=== PATIENT | female | born 1980 | race Two or more races ===

== ENCOUNTER 2021-04-13 17:12 | Inpatient (IN) | payer MEDICAID ==
[~2021-04-13] VITALS: Ht 154.9 cm; Wt 53.5 kg
[~2021-04-13 17:12] MED LIST: LISINOPRIL PO; NAPR-1176 PO; NAPROXEN PO
[2021-04-13] MEDS ORDERED: ACETAMINOPHEN 325MG TABLET PO STA (19:55)
[2021-04-13] MEDS ORDERED: ALBUTEROL (0.083%) 2.5MG/3ML NEB HHN ONE ×3 (20:15)
[2021-04-13] MEDS ORDERED: IPRATROPIUM BROMIDE (0.02%) 0.5MG/2.5ML NEB HHN ONE (20:15)
[2021-04-13 20:39] LABS: BASOPHILS % 1.9 % (0.0-2.0); EOSINOPHILS % 12.7 % (0.0-5.0); LYMPHOCYTES % 25.1 % (20.0-50.0); MEAN CORPUSCULAR HEMOGLOBIN 17.5 pg (28.0-32.0); MEAN CORPUSCULAR VOLUME 58.3 fL (81.0-99.0); MEAN PLATELET VOLUME 8.6 fl (7.4-10.4); MONOCYTES % 12.3 % (2.0-8.0); PLATELET 384 x1000/uL (130-400); RED BLOOD CELL COUNT 3.43 mill/uL (4.2-5.4); RED CELL DISTRIBUTION WIDTH 23.7 % (11.6-14.6)
[2021-04-13 20:43] LABS: CHLORIDE 106 mEq/L (98-107)
[2021-04-13 20:45] LABS: INR 1.1; PROTHROMBIN TIME 11.3 sec (9.6-11.0)
[2021-04-13 20:48] LABS: ETHANOL BLOOD < 10 mg/dL
[2021-04-13 20:57] LABS: PLATELET ESTIMATE NORMAL
[2021-04-13] MEDS ORDERED: CEFTRIAXONE 1 G PREMIX 50 ML IV SCH (21:15)
[2021-04-13] MEDS ORDERED: AZITHROMYCIN 500MG/250ML 250 ML IV SCH (21:15)
[2021-04-13 21:36] LABS: TOTAL IRON BINDING CAPACITY 356 ug/dL (250-450)
[2021-04-13] MEDS ORDERED: ONDANSETRON HCL 4MG/2ML INJ IV ONE (21:45)
[2021-04-13 22:46] LABS: CLARITY URINE CLEAR (CLEAR); COLOR URINE YELLOW (YELLOW); KETONES URINE NEGATIVE (NEGATIVE); LEUKOCYTE ESTERASE URINE 1+ (NEGATIVE); NITRITE URINE NEGATIVE (NEGATIVE); OCCULT BLOOD URINE NEGATIVE (NEGATIVE); PROTEIN URINE NEGATIVE (NEGATIVE)
[2021-04-13 22:56] LABS: *AMPHETAMINES SCREEN URINE NEGATIVE (NEGATIVE); *BARBITURATES SCREEN URINE NEGATIVE (NEGATIVE); *BENZODIAZEPINES SCREEN URINE NEGATIVE (NEGATIVE); *COCAINE SCREEN URINE NEGATIVE (NEGATIVE); METHADONE URINE SCREEN NEGATIVE (NEGATIVE)
[2021-04-13 22:57] LABS: CANNABINOID URINE SCREEN NEGATIVE (NEGATIVE); OPIATES URINE SCREEN NEGATIVE (NEGATIVE); PHENCYCLIDINE URINE SCREEN NEGATIVE (NEGATIVE)
[2021-04-14] VITALS (12 sets, daily range): BP systolic 118–146; BP diastolic 84–99
[2021-04-14] MEDS ORDERED: IPRATROPIUM/ALBUTEROL 0.5-3(2.5)MG/3ML NEB HHN PRN
[2021-04-14] MEDS ORDERED: SODIUM CHLORIDE 0.9% 1,000 ML IV SCH
[2021-04-14] MEDS ORDERED: ACETAMINOPHEN 325MG TABLET PO PRN ×2
[2021-04-14] MEDS ORDERED: DIPHENHYDRAMINE 50MG/ML VIAL IV PRN
[2021-04-14] MEDS: ONDANSETRON HCL 4MG/2ML INJ IV PRN ×2 (03:05→21:11)
[2021-04-14] MEDS: TRAMADOL 50MG TABLET PO PRN ×2 (08:03→17:53)
[2021-04-14] MEDS: PANTOPRAZOLE SODIUM 40 MG/VIAL IV SCH (08:03)
[2021-04-14 09:46] LABS: HEMATOCRIT 24.8 % (36.0-48.0); HEMOGLOBIN 7.7 g/dL (12.0-16.0); MEAN CORPUSCULAR HEMOGLOBIN 19.3 pg (28.0-32.0); MEAN CORPUSCULAR VOLUME 62.1 fL (81.0-99.0); PLATELET 352 x1000/uL (130-400); RED BLOOD CELL COUNT 3.99 mill/uL (4.2-5.4); RED CELL DISTRIBUTION WIDTH 26.5 % (11.6-14.6)
[2021-04-14] MEDS ORDERED: GUAIFENESIN 200MG/10ML SUGAR FREE UDC PO PRN (10:45)
[2021-04-14] MEDS: FUROSEMIDE 40MG TABLET PO SCH (10:52)
[2021-04-14] MEDS: IRON SUCROSE COMPLEX 100 MG/5 ML ML IV SCH (12:05)
[2021-04-14] MEDS ORDERED: POTASSIUM CHLORIDE 20MEQ TABLET SR PO NR (12:45)
[2021-04-14] MEDS ORDERED: BISACODYL 5MG TABLET PO SCH (13:30)
[2021-04-14] MEDS ORDERED: METOCLOPRAMIDE HCL 10MG/2ML VIAL IV SCH (13:30)
[2021-04-14] MEDS ORDERED: NALOXONE HCL 0.4MG/ML VIAL IV PRN (13:45)
[2021-04-14] MEDS ORDERED: SORBITOL 70% SOLN 30ML PO SCH (14:00)
[2021-04-14] MEDS ORDERED: LORAZEPAM 2MG/ML CPJ IV PRN (14:45)
[2021-04-14] MEDS ORDERED: *PATIENT'S OWN MEDICATION STORAGE XX SCH (15:45)
[2021-04-14 15:56] LABS: BASOPHILS % 1.4 % (0.0-2.0); EOSINOPHILS % 10.3 % (0.0-5.0); HEMOGLOBIN. 8.3 g/dL (12.0-16.0); MEAN CORPUSCULAR HEMOGLOBIN 19.5 pg (28.0-32.0); MEAN CORPUSCULAR VOLUME 61.5 fL (81.0-99.0); MEAN PLATELET VOLUME 8.7 fl (7.4-10.4); MONOCYTES % 11.4 % (2.0-8.0); NEUTROPHILS % 56.9 % (40.0-76.0); PLATELET 351 x1000/uL (130-400); RED BLOOD CELL COUNT 4.24 mill/uL (4.2-5.4); RED CELL DISTRIBUTION WIDTH 26.4 % (11.6-14.6)
[2021-04-14] MEDS ORDERED: PROMETHAZINE/DEXTROMETHORPHAN 6.25-15MG/5ML BOTTLE 120ML PO PRN (18:00)
[2021-04-14] MEDS ORDERED: BUDESONIDE 0.5MG/2ML NEB HHN SCH (18:00)
[2021-04-14] MEDS: TEMAZEPAM 15MG CAPSULE PO PRN (21:11)
[2021-04-14] MEDS: GUAIFENESIN 600MG ER TABLET PO SCH (21:11)
[2021-04-15] VITALS (13 sets, daily range): BP systolic 114–152; BP diastolic 78–108
[2021-04-15] MEDS: TRAMADOL 50MG TABLET PO PRN ×2 (05:42→14:15)
[2021-04-15 07:24] LABS: INR 1.1; PROTHROMBIN TIME 11.6 sec (9.6-11.0)
[2021-04-15 07:50] LABS: FOLIC ACID (FOLATE) SERUM 3.5 ng/mL (>5.38)
[2021-04-15 07:51] LABS: BASOPHILS % 1.3 % (0.0-2.0); EOSINOPHILS % 12.8 % (0.0-5.0); HEMATOCRIT. 28.6 % (36.0-48.0); HEMOGLOBIN. 8.9 g/dL (12.0-16.0); LYMPHOCYTES % 26.1 % (20.0-50.0); MEAN CORPUSCULAR HEMOGLOBIN 19.3 pg (28.0-32.0); MEAN CORPUSCULAR VOLUME 62.1 fL (81.0-99.0); MEAN PLATELET VOLUME 8.7 fl (7.4-10.4); MONOCYTES % 10.1 % (2.0-8.0); NEUTROPHILS % 49.7 % (40.0-76.0); PLATELET 383 x1000/uL (130-400); RED CELL DISTRIBUTION WIDTH 26.9 % (11.6-14.6)
[2021-04-15] MEDS: PANTOPRAZOLE SODIUM 40 MG/VIAL IV SCH (08:40)
[2021-04-15] MEDS: GUAIFENESIN 600MG ER TABLET PO SCH ×2 (08:41→20:51)
[2021-04-15] MEDS: IRON SUCROSE COMPLEX 100 MG/5 ML ML IV SCH (08:41)
[2021-04-15] MEDS: FUROSEMIDE 40MG TABLET PO SCH (08:41)
[2021-04-15 09:07] LABS: CHLORIDE 106 mEq/L (98-107)
[2021-04-15] MEDS: DILTIAZEM HCL 30MG TABLET PO SCH ×2 (12:13→17:30)
[2021-04-15 12:39] LABS: T4 FREE 1.62 ng/dL (0.76-1.46)
[2021-04-15] MEDS ORDERED: IPRATROPIUM/ALBUTEROL 0.5-3(2.5)MG/3ML NEB HHN PRN (16:00)
[2021-04-15] MEDS: DOCUSATE SODIUM 100MG CAPSULE PO SCH (18:57)
[2021-04-15] MEDS: TEMAZEPAM 15MG CAPSULE PO PRN (20:51)
[2021-04-16] VITALS (13 sets, daily range): BP systolic 114–153; BP diastolic 59–97
[2021-04-16] MEDS: DILTIAZEM HCL 30MG TABLET PO SCH ×5 (00:50→23:28)
[2021-04-16] MEDS: TRAMADOL 50MG TABLET PO PRN ×3 (04:43→23:29)
[2021-04-16 07:46] LABS: CHLORIDE 108 mEq/L (98-107)
[2021-04-16 07:56] LABS: BASOPHILS % 1.2 % (0.0-2.0); EOSINOPHILS % 12.1 % (0.0-5.0); HEMATOCRIT. 27.6 % (36.0-48.0); HEMOGLOBIN. 8.6 g/dL (12.0-16.0); LYMPHOCYTES % 20.2 % (20.0-50.0); MEAN CORPUSCULAR HEMOGLOBIN 19.5 pg (28.0-32.0); MEAN CORPUSCULAR VOLUME 62.6 fL (81.0-99.0); MEAN PLATELET VOLUME 8.5 fl (7.4-10.4); MONOCYTES % 10.4 % (2.0-8.0); NEUTROPHILS % 56.1 % (40.0-76.0); PLATELET 395 x1000/uL (130-400); RED CELL DISTRIBUTION WIDTH 27.3 % (11.6-14.6)
[2021-04-16] MEDS: GUAIFENESIN 600MG ER TABLET PO SCH ×2 (08:54→20:32)
[2021-04-16] MEDS: FUROSEMIDE 40MG TABLET PO SCH ×2 (08:54→09:00)
[2021-04-16] MEDS: POLYETHYLENE GLYCOL 3350 (17GM) 1 DOSE PACK PO SCH (08:54)
[2021-04-16] MEDS: DOCUSATE SODIUM 100MG CAPSULE PO SCH ×2 (08:54→16:47)
[2021-04-16] MEDS: PANTOPRAZOLE SODIUM 40 MG/VIAL IV SCH (08:54)
[2021-04-16 13:00] LABS: PLATELET ESTIMATE NORMAL
[2021-04-16] MEDS: GUAIFENESIN-DM 200MG-20MG/10ML UDC PO PRN (14:42)
[2021-04-16] MEDS: ONDANSETRON HCL 4MG/2ML INJ IV PRN (15:44)
[2021-04-16] MEDS: FERROUS SULFATE 325MG TABLET PO SCH (17:45)
[2021-04-16] MEDS: METOPROLOL TARTRATE 50MG TABLET PO SCH (20:32)
[2021-04-16] MEDS ORDERED: METOPROLOL TARTRATE 25MG TABLET PO SCH (21:00)
[2021-04-16] MEDS: TEMAZEPAM 15MG CAPSULE PO PRN (23:28)
[2021-04-17 04:00] VITALS: BP 126/86
[2021-04-17] MEDS: DILTIAZEM HCL 30MG TABLET PO SCH ×3 (06:00→17:54)
[2021-04-17 06:34] LABS: HEMATOCRIT. 29.9 % (36.0-48.0); HEMOGLOBIN. 8.8 g/dL (12.0-16.0); MEAN CORPUSCULAR HEMOGLOBIN 18.6 pg (28.0-32.0); MEAN CORPUSCULAR VOLUME 63.1 fL (81.0-99.0); MEAN PLATELET VOLUME 8.6 fl (7.4-10.4); PLATELET 388 x1000/uL (130-400); RED BLOOD CELL COUNT 4.75 mill/uL (4.2-5.4); RED CELL DISTRIBUTION WIDTH 27.7 % (11.6-14.6)
[2021-04-17 07:09] LABS: CHLORIDE 107 mEq/L (98-107)
[2021-04-17 08:00] VITALS: BP 148/95
[2021-04-17] MEDS: FERROUS SULFATE 325MG TABLET PO SCH ×3 (08:41→17:54)
[2021-04-17] MEDS: DOCUSATE SODIUM 100MG CAPSULE PO SCH ×2 (08:42→17:54)
[2021-04-17] MEDS: GUAIFENESIN 600MG ER TABLET PO SCH ×2 (08:42→21:02)
[2021-04-17] MEDS: FUROSEMIDE 40MG TABLET PO SCH ×2 (08:43→09:00)
[2021-04-17] MEDS: PANTOPRAZOLE SODIUM 40 MG/VIAL IV SCH ×2 (08:43→09:00)
[2021-04-17] MEDS: POLYETHYLENE GLYCOL 3350 (17GM) 1 DOSE PACK PO SCH ×2 (08:43→09:00)
[2021-04-17] MEDS: METOPROLOL TARTRATE 50MG TABLET PO SCH ×2 (08:43→21:02)
[2021-04-17 10:44] LABS: PLATELET ESTIMATE NORMAL
[2021-04-17 12:00] VITALS: BP 113/76
[2021-04-17] MEDS: TRAMADOL 50MG TABLET PO PRN ×2 (15:14→21:02)
[2021-04-17] MEDS: GUAIFENESIN-DM 200MG-20MG/10ML UDC PO PRN (15:15)
[2021-04-17 16:00] VITALS: BP 117/83
[2021-04-17 20:00] VITALS: BP 122/69
[2021-04-17] MEDS: TEMAZEPAM 15MG CAPSULE PO PRN (22:02)
[2021-04-18] VITALS (7 sets, daily range): BP systolic 110–138; BP diastolic 70–86
[2021-04-18] MEDS: DILTIAZEM HCL 30MG TABLET PO SCH ×4 (00:38→17:41)
[2021-04-18] MEDS: TRAMADOL 50MG TABLET PO PRN ×2 (07:59→17:41)
[2021-04-18 08:10] LABS: BASOPHILS % 1.1 % (0.0-2.0); EOSINOPHILS % 14.1 % (0.0-5.0); HEMATOCRIT. 30.9 % (36.0-48.0); HEMOGLOBIN. 9.3 g/dL (12.0-16.0); LYMPHOCYTES % 27.3 % (20.0-50.0); MEAN CORPUSCULAR HEMOGLOBIN 19.4 pg (28.0-32.0); MEAN CORPUSCULAR VOLUME 64.2 fL (81.0-99.0); MEAN PLATELET VOLUME 8.6 fl (7.4-10.4); MONOCYTES % 8.3 % (2.0-8.0); NEUTROPHILS % 49.2 % (40.0-76.0); PLATELET 415 x1000/uL (130-400); RED BLOOD CELL COUNT 4.82 mill/uL (4.2-5.4); RED CELL DISTRIBUTION WIDTH 29.3 % (11.6-14.6)
[2021-04-18 08:13] LABS: CHLORIDE 105 mEq/L (98-107)
[2021-04-18] MEDS: POLYETHYLENE GLYCOL 3350 (17GM) 1 DOSE PACK PO SCH ×2 (09:00→09:16)
[2021-04-18] MEDS: METOPROLOL TARTRATE 50MG TABLET PO SCH ×4 (09:00→20:39)
[2021-04-18] MEDS: PANTOPRAZOLE SODIUM 40 MG/VIAL IV SCH ×2 (09:00→09:15)
[2021-04-18] MEDS: FUROSEMIDE 40MG TABLET PO SCH ×2 (09:00→09:16)
[2021-04-18] MEDS: DOCUSATE SODIUM 100MG CAPSULE PO SCH ×2 (09:16→17:40)
[2021-04-18] MEDS: GUAIFENESIN 600MG ER TABLET PO SCH ×2 (09:16→20:24)
[2021-04-18] MEDS: FERROUS SULFATE 325MG TABLET PO SCH ×2 (09:16→17:40)
[2021-04-18] MEDS: ONDANSETRON HCL 4MG/2ML INJ IV PRN (20:24)
[2021-04-18] MEDS: TEMAZEPAM 15MG CAPSULE PO PRN (20:25)
[2021-04-19] MEDS: DILTIAZEM HCL 30MG TABLET PO SCH ×2 (00:04→06:01)
[2021-04-19 00:27] VITALS: BP 134/96
[2021-04-19] MEDS: TRAMADOL 50MG TABLET PO PRN ×2 (01:08→08:38)
[2021-04-19 04:04] VITALS: BP 138/96
[2021-04-19 07:04] LABS: CHLORIDE 106 mEq/L (98-107)
[2021-04-19 07:30] LABS: BASOPHILS % 1.2 % (0.0-2.0); EOSINOPHILS % 10.4 % (0.0-5.0); HEMATOCRIT. 30.2 % (36.0-48.0); HEMOGLOBIN. 9.3 g/dL (12.0-16.0); LYMPHOCYTES % 27.2 % (20.0-50.0); MEAN CORPUSCULAR HEMOGLOBIN 19.6 pg (28.0-32.0); MEAN CORPUSCULAR VOLUME 63.8 fL (81.0-99.0); MEAN PLATELET VOLUME 8.6 fl (7.4-10.4); MONOCYTES % 10.1 % (2.0-8.0); NEUTROPHILS % 51.1 % (40.0-76.0); PLATELET 365 x1000/uL (130-400); RED BLOOD CELL COUNT 4.73 mill/uL (4.2-5.4); RED CELL DISTRIBUTION WIDTH 30.4 % (11.6-14.6)
[2021-04-19 08:00] VITALS: BP 137/100
[2021-04-19] MEDS: POLYETHYLENE GLYCOL 3350 (17GM) 1 DOSE PACK PO SCH (08:36)
[2021-04-19] MEDS: FUROSEMIDE 40MG TABLET PO SCH (08:37)
[2021-04-19] MEDS: FERROUS SULFATE 325MG TABLET PO SCH (08:37)
[2021-04-19] MEDS: GUAIFENESIN 600MG ER TABLET PO SCH (08:37)
[2021-04-19] MEDS: PANTOPRAZOLE SODIUM 40 MG/VIAL IV SCH ×2 (08:37→08:44)
[2021-04-19] MEDS: DOCUSATE SODIUM 100MG CAPSULE PO SCH (08:37)
[2021-04-19] MEDS: METOPROLOL TARTRATE 50MG TABLET PO SCH (08:38)
[2021-04-19 10:26] VITALS: BP 134/90
[2021-04-19 10:37] VITALS: BP 134/90
== END 2021-04-19 11:30 | disposition home or self-care (01) | DRG 663 ==
LOC: ER 17:12 → 3WST 22:45 → ENRESERV 23:44 → 7WST 04-16 22:53 → 6WST 04-18 12:25
PROVIDERS: ADMIT Internal Medicine; ATTEND Internal Medicine
PROC: 30233N1 Transfusion of Nonautologous Red Blood Cells into Peripheral Vein, Percutaneous Approach (ICD-10-PCS; principal; 2021-04-13)
DX: D50.9 Iron deficiency anemia, unspecified (principal); I50.40 Unspecified combined systolic (congestive) and diastolic (congestive) heart failure; L89.156 Pressure-induced deep tissue damage of sacral region; E44.0 Moderate protein-calorie malnutrition; I11.0 Hypertensive heart disease with heart failure; E11.9 Type 2 diabetes mellitus without complications; M06.9 Rheumatoid arthritis, unspecified; K80.20 Calculus of gallbladder without cholecystitis without obstruction; Z20.822 Contact with and (suspected) exposure to COVID-19; F10.20 Alcohol dependence, uncomplicated; J45.909 Unspecified asthma, uncomplicated; Z60.2 Problems related to living alone; G89.29 Other chronic pain; M54.9 Dorsalgia, unspecified; Z88.6 Allergy status to analgesic agent; Z90.710 Acquired absence of both cervix and uterus; Z99.3 Dependence on wheelchair; Z88.8 Allergy status to other drugs, medicaments and biological substances; Z79.899 Other long term (current) drug therapy
CPT/HCPCS: 36415; 71045; 76700; 80048; 80053; 80305; 80320; 81003; 82040; 82607; 82728; 82746; 82962; 83036; 83540; 83550; 83880; 84134; 84439; 84443; 84484; 85025; 85027; 85044; 86850; 86900; 86920; 87426; 93005; 94640; 97162; 97166; 99291; A6261; C9113; J0456; J0696; J1200; J2060; J2405; J2765; J7626; P9016; U0003; U0005; G0480

== ENCOUNTER 2021-05-05 20:31 | Inpatient (IN) | payer MEDICAID, OTHER ==
[~2021-05-05] VITALS: Ht 160 cm; Wt 60.5 kg
[2021-05-05] MEDS ORDERED: ACETAMINOPHEN 325MG TABLET PO STA (21:57)
[2021-05-05] MEDS ORDERED: SODIUM CHLORIDE 0.9% 1000ML BAG (SEPSIS BOLUS) IV ONE (22:00)
[2021-05-05] MEDS ORDERED: CEFTRIAXONE 1 G PREMIX 50 ML IV ONE (22:00)
[2021-05-05] MEDS ORDERED: DOXYCYCLINE 100 MG in DEXT 5% WATER 100 ML IV SCH (22:00)
[2021-05-05 22:43] LABS: HEMATOCRIT. 30.7 % (36.0-48.0); HEMOGLOBIN. 9.5 g/dL (12.0-16.0); MEAN CORPUSCULAR HEMOGLOBIN 20.1 pg (28.0-32.0); MEAN CORPUSCULAR VOLUME 64.8 fL (81.0-99.0); MEAN PLATELET VOLUME 8.7 fl (7.4-10.4); PLATELET 344 x1000/uL (130-400); RED BLOOD CELL COUNT 4.74 mill/uL (4.2-5.4); RED CELL DISTRIBUTION WIDTH 28.1 % (11.6-14.6)
[2021-05-05 22:52] LABS: CHLORIDE 107 mEq/L (98-107)
[2021-05-05 22:58] LABS: PLATELET ESTIMATE NORMAL
[2021-05-05] MEDS ORDERED: FUROSEMIDE 40MG/4ML VIAL IVP NR (23:00)
[2021-05-05] MEDS ORDERED: ONDANSETRON HCL 4MG/2ML INJ IV NR (23:00)
[2021-05-06 00:01] LABS: CLARITY URINE CLEAR (CLEAR); COLOR URINE YELLOW (YELLOW); KETONES URINE NEGATIVE (NEGATIVE); LEUKOCYTE ESTERASE URINE NEGATIVE (NEGATIVE); NITRITE URINE NEGATIVE (NEGATIVE); OCCULT BLOOD URINE NEGATIVE (NEGATIVE); PH URINE 6.5 (4.5-8.0); PROTEIN URINE NEGATIVE (NEGATIVE); SPECIFIC GRAVITY URINE 1.014 (1.005-1.030); UROBILINOGEN URINE 0.2 E.U./dL (0.2-1.0)
[2021-05-06] MEDS ORDERED: KETOROLAC 15MG/ML VIAL IV ONE (00:45)
[2021-05-06 01:15] LABS: HCG SCREEN NEGATIVE
[2021-05-06] MEDS ORDERED: ONDANSETRON HCL 4MG/2ML INJ IV ONE (02:30)
[2021-05-06] MEDS ORDERED: GUAIFENESIN 200MG/10ML SUGAR FREE UDC PO PRN (03:30)
[2021-05-06] MEDS ORDERED: CLONIDINE 0.1MG TABLET PO PRN (03:30)
[2021-05-06] MEDS ORDERED: ACETAMINOPHEN 325MG TABLET PO PRN ×2 (03:30)
[2021-05-06] MEDS ORDERED: MAGNESIUM/ALUMINUM HYDROXIDE/SIMETHICONE 30ML UDC PO PRN (03:30)
[2021-05-06] MEDS ORDERED: IPRATROPIUM/ALBUTEROL 0.5-3(2.5)MG/3ML NEB HHN PRN (03:30)
[2021-05-06] MEDS: ZOLPIDEM TARTRATE 5MG TABLET PO PRN ×2 (04:14→21:15)
[2021-05-06] MEDS: SODIUM CHLORIDE 0.9% INJ 3ML FLUSH IVF SCH ×3 (06:00→21:17)
[2021-05-06] MEDS ORDERED: IOHEXOL-350 100 ML BOTTLE ONE (06:35)
[2021-05-06] MEDS: FERROUS SULFATE 325MG TABLET PO SCH ×4 (06:57→17:39)
[2021-05-06] MEDS: DILTIAZEM HCL 30MG TABLET PO SCH ×3 (06:59→21:15)
[2021-05-06 08:00] VITALS: BP 115/73
[2021-05-06] MEDS: FUROSEMIDE 40MG/4ML VIAL IVP SCH (09:21)
[2021-05-06] MEDS: DOCUSATE SODIUM 100MG CAPSULE PO SCH ×2 (09:22→17:39)
[2021-05-06] MEDS: POLYETHYLENE GLYCOL 3350 (17GM) 1 DOSE PACK PO SCH (09:22)
[2021-05-06] MEDS: METOPROLOL TARTRATE 25MG TABLET PO SCH ×2 (09:23→21:15)
[2021-05-06] MEDS: POTASSIUM CHLORIDE 20MEQ TABLET SR PO SCH (09:24)
[2021-05-06 10:19] VITALS: BP 106/20
[2021-05-06 12:00] VITALS: BP 100/67
[2021-05-06] MEDS: LORAZEPAM 1MG TABLET PO PRN (13:46)
[2021-05-06 16:00] VITALS: BP 108/70
[2021-05-06] MEDS: ENOXAPARIN 40MG/0.4ML SYR SUBCUT SCH (17:39)
[2021-05-06 20:00] VITALS: BP 117/76
[2021-05-06] MEDS: ONDANSETRON HCL 4MG/2ML INJ IV PRN (21:17)
[2021-05-06] MEDS: DIPHENHYDRAMINE 50MG/ML VIAL IV PRN (22:34)
[2021-05-06] MEDS: TRAMADOL 50MG TABLET PO PRN (23:11)
[2021-05-07] VITALS (7 sets, daily range): BP systolic 103–124; BP diastolic 62–79
[2021-05-07] MEDS: ZOLPIDEM TARTRATE 5MG TABLET PO PRN ×2 (01:30→21:27)
[2021-05-07] MEDS: DILTIAZEM HCL 30MG TABLET PO SCH ×3 (05:16→21:11)
[2021-05-07] MEDS: SODIUM CHLORIDE 0.9% INJ 3ML FLUSH IVF SCH ×3 (05:16→21:11)
[2021-05-07] MEDS: ONDANSETRON HCL 4MG/2ML INJ IV PRN ×2 (05:21→19:26)
[2021-05-07] MEDS: POLYETHYLENE GLYCOL 3350 (17GM) 1 DOSE PACK PO SCH (08:37)
[2021-05-07] MEDS: FUROSEMIDE 40MG/4ML VIAL IVP SCH (08:37)
[2021-05-07] MEDS: FERROUS SULFATE 325MG TABLET PO SCH ×3 (08:37→16:49)
[2021-05-07] MEDS: DOCUSATE SODIUM 100MG CAPSULE PO SCH ×2 (08:37→16:49)
[2021-05-07] MEDS: POTASSIUM CHLORIDE 20MEQ TABLET SR PO SCH (08:37)
[2021-05-07] MEDS: METOPROLOL TARTRATE 25MG TABLET PO SCH ×2 (08:38→20:40)
[2021-05-07] MEDS: TRAMADOL 50MG TABLET PO PRN ×3 (08:43→21:27)
[2021-05-07] MEDS ORDERED: ENOXAPARIN 40MG/0.4ML SYR SUBCUT SCH (09:00)
[2021-05-07] MEDS: LORAZEPAM 1MG TABLET PO PRN ×2 (11:43→21:11)
[2021-05-07] MEDS ORDERED: NALOXONE HCL 0.4MG/ML VIAL IV PRN (15:45)
[2021-05-07] MEDS: ENOXAPARIN 40MG/0.4ML SYR SUBCUT SCH (16:50)
[2021-05-07] MEDS: DIPHENHYDRAMINE 50MG/ML VIAL IV PRN (21:11)
[2021-05-08] MEDS: TRAMADOL 50MG TABLET PO PRN ×3 (03:38→23:46)
[2021-05-08 03:40] VITALS: BP 115/82
[2021-05-08] MEDS: DILTIAZEM HCL 30MG TABLET PO SCH ×3 (05:18→21:10)
[2021-05-08] MEDS: SODIUM CHLORIDE 0.9% INJ 3ML FLUSH IVF SCH ×3 (05:18→21:10)
[2021-05-08] MEDS: DIPHENHYDRAMINE 50MG/ML VIAL IV PRN ×2 (06:49→12:13)
[2021-05-08 07:55] VITALS: BP 119/81
[2021-05-08] MEDS: POLYETHYLENE GLYCOL 3350 (17GM) 1 DOSE PACK PO SCH (08:25)
[2021-05-08] MEDS: FUROSEMIDE 40MG/4ML VIAL IVP SCH (08:25)
[2021-05-08] MEDS: METOPROLOL TARTRATE 25MG TABLET PO SCH ×2 (08:25→21:09)
[2021-05-08] MEDS: POTASSIUM CHLORIDE 20MEQ TABLET SR PO SCH (08:25)
[2021-05-08] MEDS: DOCUSATE SODIUM 100MG CAPSULE PO SCH ×2 (08:25→16:58)
[2021-05-08] MEDS: FERROUS SULFATE 325MG TABLET PO SCH ×3 (08:25→16:59)
[2021-05-08 11:48] VITALS: BP 101/63
[2021-05-08 16:09] VITALS: BP 96/62
[2021-05-08] MEDS: ENOXAPARIN 40MG/0.4ML SYR SUBCUT SCH (16:58)
[2021-05-08] MEDS: ONDANSETRON HCL 4MG/2ML INJ IV PRN (17:17)
[2021-05-08 20:00] VITALS: BP 123/74
[2021-05-08] MEDS: RISPERIDONE 1MG TABLET PO SCH ×2 (21:00→21:09)
[2021-05-08] MEDS: ZOLPIDEM TARTRATE 5MG TABLET PO PRN (21:54)
[2021-05-09] VITALS (7 sets, daily range): BP systolic 106–128; BP diastolic 70–86
[2021-05-09] MEDS: DIPHENHYDRAMINE 50MG/ML VIAL IV PRN ×3 (01:40→11:42)
[2021-05-09] MEDS: DILTIAZEM HCL 30MG TABLET PO SCH ×3 (06:27→23:06)
[2021-05-09] MEDS: TRAMADOL 50MG TABLET PO PRN ×3 (06:28→23:04)
[2021-05-09] MEDS: SODIUM CHLORIDE 0.9% INJ 3ML FLUSH IVF SCH ×3 (06:28→21:19)
[2021-05-09] MEDS: DOCUSATE SODIUM 100MG CAPSULE PO SCH ×2 (09:00→16:32)
[2021-05-09] MEDS: FUROSEMIDE 40MG/4ML VIAL IVP SCH (09:00)
[2021-05-09] MEDS: POLYETHYLENE GLYCOL 3350 (17GM) 1 DOSE PACK PO SCH (09:00)
[2021-05-09] MEDS: RISPERIDONE 1MG TABLET PO SCH ×3 (09:00→21:15)
[2021-05-09] MEDS: FERROUS SULFATE 325MG TABLET PO SCH ×3 (09:41→16:29)
[2021-05-09] MEDS: METOPROLOL TARTRATE 25MG TABLET PO SCH ×2 (09:41→21:00)
[2021-05-09] MEDS: POTASSIUM CHLORIDE 20MEQ TABLET SR PO SCH (09:41)
[2021-05-09] MEDS: ONDANSETRON HCL 4MG/2ML INJ IV PRN ×2 (11:42→23:03)
[2021-05-09] MEDS: ENOXAPARIN 40MG/0.4ML SYR SUBCUT SCH ×2 (16:31→16:33)
[2021-05-09] MEDS: ZOLPIDEM TARTRATE 5MG TABLET PO PRN (21:15)
[2021-05-10 04:00] VITALS: BP 103/67
[2021-05-10] MEDS: DIPHENHYDRAMINE 50MG/ML VIAL IV PRN ×3 (05:23→17:45)
[2021-05-10] MEDS: ONDANSETRON HCL 4MG/2ML INJ IV PRN ×2 (05:23→22:31)
[2021-05-10] MEDS: SODIUM CHLORIDE 0.9% INJ 3ML FLUSH IVF SCH ×3 (05:42→22:19)
[2021-05-10] MEDS: DILTIAZEM HCL 30MG TABLET PO SCH ×3 (06:00→22:17)
[2021-05-10 08:00] VITALS: BP 100/60
[2021-05-10] MEDS: METOPROLOL TARTRATE 25MG TABLET PO SCH ×2 (09:00→22:18)
[2021-05-10] MEDS: FERROUS SULFATE 325MG TABLET PO SCH ×3 (09:05→18:26)
[2021-05-10] MEDS: RISPERIDONE 1MG TABLET PO SCH ×2 (09:05→22:13)
[2021-05-10] MEDS: DOCUSATE SODIUM 100MG CAPSULE PO SCH ×2 (09:05→17:00)
[2021-05-10] MEDS: POTASSIUM CHLORIDE 20MEQ TABLET SR PO SCH (09:05)
[2021-05-10] MEDS: POLYETHYLENE GLYCOL 3350 (17GM) 1 DOSE PACK PO SCH (09:05)
[2021-05-10] MEDS: FUROSEMIDE 40MG/4ML VIAL IVP SCH (09:05)
[2021-05-10] MEDS: TRAMADOL 50MG TABLET PO PRN ×2 (09:05→18:27)
[2021-05-10 12:00] VITALS: BP 119/83
[2021-05-10 16:00] VITALS: BP 131/95
[2021-05-10] MEDS: ENOXAPARIN 40MG/0.4ML SYR SUBCUT SCH (17:00)
[2021-05-10] MEDS ORDERED: AMLO10TA80 PO (17:18)
[2021-05-10] MEDS ORDERED: OMEP10CA5 PO (17:18)
[2021-05-10] MEDS ORDERED: TRAM50TA PO (17:18)
[2021-05-10] MEDS ORDERED: NAPR-681 PO (17:18)
[2021-05-10] MEDS ORDERED: DIPH25CA83 PO (17:18)
[2021-05-10] MEDS ORDERED: RISP1 PO (19:01)
[2021-05-10] MEDS ORDERED: FERR-63 PO (19:01)
[2021-05-10] MEDS ORDERED: DILT30TA38 PO (19:01)
[2021-05-10] MEDS ORDERED: METO25TA6 PO (19:01)
[2021-05-10] MEDS ORDERED: FURO-151 MT (19:01)
[2021-05-10 20:00] VITALS: BP 119/70
[2021-05-10] MEDS: ZOLPIDEM TARTRATE 5MG TABLET PO PRN (22:31)
[2021-05-11] VITALS: BP 124/88
[2021-05-11] MEDS: TRAMADOL 50MG TABLET PO PRN (00:52)
[2021-05-11 01:06] LABS: BASOPHILS % 1.2 % (0.0-2.0); EOSINOPHILS % 7.6 % (0.0-5.0); HEMATOCRIT. 34.1 % (36.0-48.0); HEMOGLOBIN. 10.5 g/dL (12.0-16.0); LYMPHOCYTES % 34.3 % (20.0-50.0); MEAN CORPUSCULAR VOLUME 64.7 fL (81.0-99.0); MEAN PLATELET VOLUME 8.8 fl (7.4-10.4); MONOCYTES % 8.2 % (2.0-8.0); NEUTROPHILS % 48.7 % (40.0-76.0); PLATELET 282 x1000/uL (130-400); RED BLOOD CELL COUNT 5.28 mill/uL (4.2-5.4); RED CELL DISTRIBUTION WIDTH 27.7 % (11.6-14.6)
[2021-05-11 01:17] LABS: CHLORIDE 106 mEq/L (98-107)
[2021-05-11 04:00] VITALS: BP 119/85
[2021-05-11 05:02] VITALS: BP 119/85
[2021-05-11] MEDS: DILTIAZEM HCL 30MG TABLET PO SCH (05:57)
[2021-05-11] MEDS: DIPHENHYDRAMINE 50MG/ML VIAL IV PRN (05:59)
[2021-05-11] MEDS: SODIUM CHLORIDE 0.9% INJ 3ML FLUSH IVF SCH (06:38)
[2021-05-11 08:00] VITALS: BP 105/71
[2021-05-11] MEDS: POLYETHYLENE GLYCOL 3350 (17GM) 1 DOSE PACK PO SCH (08:29)
[2021-05-11] MEDS: DOCUSATE SODIUM 100MG CAPSULE PO SCH (08:29)
[2021-05-11] MEDS: POTASSIUM CHLORIDE 20MEQ TABLET SR PO SCH (08:30)
[2021-05-11] MEDS: RISPERIDONE 1MG TABLET PO SCH (08:30)
[2021-05-11] MEDS: FERROUS SULFATE 325MG TABLET PO SCH (08:30)
[2021-05-11] MEDS: FUROSEMIDE 40MG/4ML VIAL IVP SCH (08:31)
[2021-05-11] MEDS: METOPROLOL TARTRATE 25MG TABLET PO SCH (08:31)
== END 2021-05-11 09:46 | disposition home or self-care (01) | DRG 194 ==
LOC: ER 20:31 → MICUSO 05-06 00:42 → EDBEDREQDT 05-06 00:43 → EDBEDREQ 05-06 00:43 → EDBEDREQTM 05-06 00:43 → EDBEDREQSVC 05-06 00:43 → 8WST 05-06 07:17
PROVIDERS: ADMIT Internal Medicine; ATTEND Internal Medicine
DX: I11.0 Hypertensive heart disease with heart failure (principal); E44.0 Moderate protein-calorie malnutrition; D50.9 Iron deficiency anemia, unspecified; E11.9 Type 2 diabetes mellitus without complications; F41.1 Generalized anxiety disorder; F41.9 Anxiety disorder, unspecified; I50.43 Acute on chronic combined systolic (congestive) and diastolic (congestive) heart failure; M06.9 Rheumatoid arthritis, unspecified; J45.909 Unspecified asthma, uncomplicated; M54.9 Dorsalgia, unspecified; K44.9 Diaphragmatic hernia without obstruction or gangrene; G89.29 Other chronic pain; Z60.2 Problems related to living alone; J43.9 Emphysema, unspecified; K80.20 Calculus of gallbladder without cholecystitis without obstruction; Z20.822 Contact with and (suspected) exposure to COVID-19; Z90.710 Acquired absence of both cervix and uterus; Z91.14 Patient's other noncompliance with medication regimen; Z68.23 Body mass index [BMI] 23.0-23.9, adult; Z88.8 Allergy status to other drugs, medicaments and biological substances; Z88.5 Allergy status to narcotic agent; Z79.899 Other long term (current) drug therapy
CPT/HCPCS: 36415; 71045; 71275; 80053; 80320; 81003; 83605; 83880; 84145; 84484; 84703; 85025; 86850; 86900; 87426; 87804; 93005; 93306; 97162; 99285; J0696; J1200; J1650; J1885; J1940; J2405; J3490; J7030; J7060; Q9967; G0480